=== PATIENT | female | born 1940 | race Native Hawaiian/Other Pacific Islander ===

== ENCOUNTER 2016-05-24 09:13 | Outpatient (CLI) | payer OTHER ==
[~2016-05-24 09:13] MED LIST: BAYER CHEWABLE81 MG OR; BRILINTA90 MG OR; CARV3.12 PO; LIPITOR40 MG PO; LISI5TAB10 PO; OMEPRAZOLE20 M1 OR
[2016-05-24 09:57] LABS: PLATELET COUNT 232 K/uL (152-353)
[2016-05-24 10:17] LABS: POTASSIUM 4.9 mmol/L (3.6-5.2)
== END 2016-05-24 10:13 | disposition home or self-care (01) ==
LOC: LABW 09:13
PROVIDERS: Internal Medicine
DX: I25.10 Atherosclerotic heart disease of native coronary artery without angina pectoris (principal); Z79.899 Other long term (current) drug therapy; Z51.81 Encounter for therapeutic drug level monitoring; E78.4 Other hyperlipidemia
CPT/HCPCS: 36415; 80053; 80061; 81000; 84443; 85027

== ENCOUNTER 2016-08-22 12:13 | Observation (INO) | payer OTHER ==
[~2016-08-22] VITALS: Ht 170.2 cm; Wt 80.0 kg
[2016-08-22 13:21] LABS: PLATELET COUNT 212 K/uL (152-353)
[2016-08-22 13:32] VITALS: BP 148/59; TEMP 98.1; Ht 170.2 cm; Wt 80.0 kg
[2016-08-22 13:37] LABS: POTASSIUM 3.6 mmol/L (3.6-5.2); SODIUM 141 mmol/L (136-145)
[2016-08-22 16:00] VITALS: BP 128/77; TEMP 98
[2016-08-22] MEDS ORDERED: CLOP75TA2 PO (17:26)
[2016-08-22] MEDS ORDERED: PANTPAK PO (17:26)
[2016-08-22] MEDS ORDERED: METOPROLOL25 M1 PO (17:26)
[2016-08-22 19:55] VITALS: BP 148/75; TEMP 98
[2016-08-23 00:28] VITALS: BP 123/59; TEMP 97.7
[2016-08-23 04:00] VITALS: BP 128/71; TEMP 97.8
[2016-08-23 05:24] LABS: PLATELET COUNT 205 K/uL (152-353)
[2016-08-23 05:43] LABS: POTASSIUM 3.4 mmol/L (3.6-5.2); SODIUM 138 mmol/L (136-145)
[2016-08-23 08:00] VITALS: BP 133/62; TEMP 97.6
[2016-08-23 12:00] VITALS: BP 143/72; TEMP 98
--- NOTE | 2016-08-23 14:12 | NUR ---
DC INSTRUCTIONS GIVEN TO PT AND FAMILY. PT VERBALIZED UNDERSTANDING. RX GIVEN TO PT. FOLLOW UP WITH DR GONZALEZ ON 08/28/16 AT 11AM. PT ALREADY HAS APPT WITH [employer] [facility] [employer]. NAD NOTED. IV DC'D WITH CANNULA INTACT AND SITE CARE PROVIDED. PT LEFT AMBULATORY REQUESTED.
== END 2016-08-23 14:15 | disposition home or self-care (01) ==
LOC: MED/SURG 12:13
PROVIDERS: Emergency Medicine; ADMIT Internal Medicine
DX: R10.84 Generalized abdominal pain (principal); N39.0 Urinary tract infection, site not specified; E87.6 Hypokalemia; E88.09 Other disorders of plasma-protein metabolism, not elsewhere classified; F32.9 Major depressive disorder, single episode, unspecified; I25.10 Atherosclerotic heart disease of native coronary artery without angina pectoris
CPT/HCPCS: 80053; 81000; 82150; 82550; 83690; 83735; 84484; 85027; 86318; 87045; 87205; 87493; 87798; 87899; 93005; 96365; 96366; 96367; 99220; G0378; G0379; J0744; J2405; Q9963

== ENCOUNTER 2017-04-16 08:50 | Outpatient (CLI) | payer OTHER ==
[~2017-04-16 08:50] MED LIST changes: +CLOP75TA2 PO; +METOPROLOL25 M1 PO; +PANTPAK PO
[2017-04-16 09:18] LABS: PLATELET COUNT 264 K/uL (152-353)
[2017-04-16 09:39] LABS: POTASSIUM 4.5 mmol/L (3.6-5.2)
== END 2017-04-16 20:04 | disposition home or self-care (01) ==
LOC: RAD 08:50 → LABW 08:50
PROVIDERS: Internal Medicine
DX: Z01.818 Encounter for other preprocedural examination (principal)
CPT/HCPCS: 36415; 80053; 81000; 85027